=== PATIENT | female | born 1965 | race Caucasian/White ===

== ENCOUNTER 2022-03-11 18:33 | Emergency (ER) | payer BC ==
[2022-03-11 18:39] VITALS: TEMP 97.9
[2022-03-11] MEDS ORDERED: methylPREDNISolone SOD SUCCI 125 MG/2 ML VIAL IV STA (18:45)
[2022-03-11] MEDS ORDERED: diphenhydrAMINE 50 MG/ML 1 ML VIAL IVP STA ×2 (18:45→18:59)
[2022-03-11] MEDS ORDERED: SODIUM CHLORIDE 0.9% 1,000 ML IV STA (18:45)
[2022-03-11] MEDS ORDERED: FAMOTIDINE 20 MG/2 ML VIAL IV STA (18:45)
--- NOTE | 2022-03-11 19:03 | ED ---
General Adult HPI - General Chief complaint: Allergic Reaction Stated complaint: Allergic Reaction Time Seen by Provider: 03/11/22 18:40 Source: patient, RN notes reviewed, old records reviewed Mode of arrival: ambulatory Limitations: no limitations - History of Present Illness Initial comments: Patient is a 56-year-old female with past medical history remarkable for eosinophilic gastritis who only takes famotidine and Benadryl when necessary at home since emergency Department complaining of new-onset ALLERGIC reaction. Unknown ALLERGIES. Unknown exposure. States she was outside with her and grandchildren running around, and began feeling her face is swollen. She had some puffy eyes, swollen lips, swollen tongue. This started approximately one half hours ago and is progressively gotten worse. Presents for further evaluation at this time. Denies difficulty in breathing, does endorse mild difficulty in swallowing. Denies nausea or vomiting. Endorses having a skin rash earlier which has since resolved. She is not on NEERAJ inhibitor's. No known ALLERGIC reaction. Denies chest pain, shortness breath, abdominal pain, diarrhea. Has no other acute complaints at this time. - Related Data Previous Rx's Medication Instructions Recorded EPINEPHrine (Auto Inject) [Epipen] 0.3 mg IM ONCE PRN #1 each 03/11/22 Allergies Allergy/AdvReac Type Severity Reaction Status Date / Time No Known Allergies Allergy Verified 03/11/22 18:35 Review of Systems ROS Statement: Those systems with pertinent positive or pertinent negative responses have been documented in the HPI. Review of Systems: CONST: Denies fever EYES: Denies blurry vision . Endorses periorbital swelling, cheek swelling. ENT: Nurse's tongue, lip swelling. C/V: Denies Chest pain RESP: Denies shortness of breath GI: Denies abdominal pain : Denies dysuria SKIN: Denies rash. MSK: Denies joint pain. NEURO: Denies headache ROS Other: All systems not noted in ROS Statement are negative. Past Medical History Additional Past Medical History / Comment(s): eusinophile disease History of Any Multi-Drug Resistant Organisms: None Reported Past Surgical History: Cholecystectomy Additional Past Surgical History / Comment(s): ruptures stomach ulcer, three breast sergury Past Psychological History: No Psychological Hx Reported Smoking Status: Never smoker Past Alcohol Use History: None Reported Past Drug Use History: None Reported General Exam - General Exam Comments Initial Comments: General: Appears in mild distress. HEAD: Normal with no signs of head trauma. EYES: PERRLA, EOMI, conjunctiva normal, no discharge. ENT: Hearing grossly intact. No stridor auscultated. Swollen tongue. Swollen lips. Uvula is midline. RESPIRATORY: Clear breath sounds bilaterally. No wheezes, rales, or rhonchi. No hypoxia. No increased work of breathing. C/V: Tachycardic with a regular rhythm. S1 and S2 auscultated. Peripheral pulses 2+ and intact throughout. ABD: Abd is soft, nontender, nondistended EXT: Normal range of motion, no obvious deformity SKIN: Appears to have an urticarial rash over the neck, which is improved per patient. NEURO: Alert and Oriented 4. No focal deficits. Limitations: no limitations Course Vital Signs 03/11/22 03/11/22 03/11/22 18:36 19:08 19:31 Temperature 97.9 F Pulse Rate 130 H 97 Respiratory 18 20 18 Rate Blood Pressure 154/90 141/81 O2 Sat by Pulse 98 100 Oximetry Medical Decision Making - Medical Decision Making Some patient's presentation and physical exam, she appears to be having an acute ALLERGIC reaction from an unknown source, likely something in the backyard where she was at. Patient took 2 oral tablets of Benadryl at home without improvement. She'll be administered 0.5 mg of IM epi in addition to IV Solu- Medrol, famotidine, Benadryl. She'll be given a 1 L fluid bolus and we will obtain a chest x-ray. She is protecting her airway at this time. Vital signs are otherwise within normal limits and stable. She was in agreement this plan. Tachycardia has improved. On reevaluation, patient's symptoms have slightly improved at this time. She states that her breathing and swallowing are improved. Her tachycardia is resolved. She has no new complaints at this time. She still has some lip and tongue swelling at this time. Periorbital and facial swelling is improved. Her rash is gone. Chest x-ray shows no acute cardio pulmonary process. Patient was in agreement this plan. Following another hour of observation, patient's tongue swelling and lip swelling has completely resolved. She is feeling improved. She is tolerating oral intake. Vital signs remained within normal limits and stable. I believe it is safer to be discharged home at this time. She'll be given a prescription for an EpiPen. She was in agreement with this plan. Patient is from another set of the state visiting. She is returning tomorrow. I advised that she avoid the area where she had the ALLERGIC reaction. She was in agreement. I will provide the patient with a prescription for EpiPen. I instructed the patient to follow up with their PCP in the next 3 days. I explained that the patient should return to the emergency department if they experience any worsening symptoms. Strict return precautions were discussed with the patient. The patient expressed understanding of these instructions. I answered all questions that the patient had. The patient was discharged home in good condition with their prescriptions and follow up information. Disposition Clinical Impression: Allergic reaction Disposition: HOME SELF-CARE Condition: Good Instructions (If sedation given, give patient instructions): Allergies (ED) Prescriptions: EPINEPHrine (Auto Inject) [Epipen] 0.3 mg IM ONCE PRN #1 each PRN Reason: Anaphylaxis Is patient prescribed a controlled substance at d/c from ED?: No Referrals: None,Stated [Primary Care Provider] - 1-2 days Time of Disposition: 21:30
--- NOTE | 2022-03-11 19:37 | XR ---
EXAMINATION TYPE: XR chest 1V portable DATE OF EXAM: 03/11/2022 COMPARISON: NONE HISTORY: Cough TECHNIQUE: Single view FINDINGS: There is no heart failure nor confluent pneumonic infiltrate. Costophrenic angles are clear but bony thorax is intact IMPRESSION: No active cardiopulmonary disease.
[2022-03-11 21:55] VITALS: BP 132/80; PULSE 92; RESP 16
== END 2022-03-11 21:53 | disposition home or self-care (01) ==
LOC: EC 18:33
DX: T78.40XA Allergy, unspecified, initial encounter (principal)
CPT/HCPCS: 71045; 99283; 96374; 96375; 96361; 96372; J0171; J1200; J2930